=== PATIENT | female | born 1985 | race Caucasian/White ===

== ENCOUNTER 2017-08-10 07:57 | Observation (INO) | payer OTHER ==
[~2017-08-10] VITALS: Ht 172.7 cm; Wt 60.8 kg
[2017-08-10] MEDS ORDERED: OMEP20TA93 PO (08:24)
[2017-08-10] MEDS ORDERED: POVIDONE IODINE 5% (ANTISEPSIS KIT) 4 APPLICATIONS EACH NARE PRN (08:45)
[2017-08-10] MEDS ORDERED: LACTATED RINGER'S 1000 ML IV PRN (08:45)
[2017-08-10] MEDS ORDERED: METOPROLOL TARTRATE 25 MG TAB PO PRN (08:45)
[2017-08-10] MEDS ORDERED: SODIUM CHLORID 0.9% 500 ML IV PRN (08:45)
[2017-08-10] MEDS ORDERED: ceFAZolin 2 GM PREMIX 50 ML IV SCH (08:45)
[2017-08-10] MEDS ORDERED: CHLORHEXIDINE GLUCONATE 2 % 1 PACK (2 CLOTHS) TOPICAL PRN (08:45)
[2017-08-10 09:27] LABS: AUTOMATED NEUTROPHIL # 5.3 TH/MM3 (1.8-7.7); BASOPHIL # 0.1 TH/MM3 (0-0.2); BASOPHIL % 0.7 % (0.0-2.0); EOSINOPHIL # 0.2 TH/MM3 (0-0.4); HEMATOCRIT 42.9 % (35.0-46.0); HEMOGLOBIN 14.7 GM/DL (11.6-15.3); LYMPHOCYTE # 1.9 TH/MM3 (1.0-4.8); MEAN CELL VOLUME 93.7 FL (80.0-100.0); MEAN CORPUSCULAR HGB CONC 34.2 % (32.0-36.0); MEAN PLATELET VOLUME 9.8 FL (7.0-11.0); MONO % 8.4 % (0.0-8.0); MONOCYTE # 0.7 TH/MM3 (0-0.9); NEUT % 64.9 % (16.0-70.0); PLATELET COUNT 137 TH/MM3 (150-450); RED BLOOD COUNT 4.58 MIL/MM3 (4.00-5.30); RED CELL DISTRIBUTION WIDTH 12.4 % (11.6-17.2); WHITE BLOOD COUNT 8.1 TH/MM3 (4.0-11.0)
[2017-08-10] MEDS ORDERED: LIDOCAINE 1%/EPINEPHrine 1:100,000 SOLN 20 ML VIAL ONE (09:27)
[2017-08-10] MEDS ORDERED: APREPITANT 40 MG CAP ONE (09:37)
[2017-08-10] MEDS ORDERED: MIDAZOLAM HCL 2 MG/2 ML VIAL ONE (09:44)
[2017-08-10] MEDS ORDERED: ACETAMINOPHEN 1000 MG/100 ML 100 ML IV ONE (09:44)
--- NOTE | 2017-08-10 11:38 | PD.OP ---
Operative Report Date of Surgery: Aug 10, 2017 Preoperative Diagnosis: (1) Dysplasia of cervix, high grade KIRT 2 (2) Dysfunctional uterine bleeding Postoperative Diagnosis: (1) Dysfunctional uterine bleeding (2) Dysplasia of cervix, high grade KIRT 2 Procedure: LAVH bilateral salpingectomy Anesthesia: general Surgeon: Ryne Hernandez Template Inspector(s): Ryne Pineda MD Aug 10, 2017 11:38
[2017-08-10] MEDS ORDERED: *MEPERIDINE 25 MG INJ VIAL PERIprocedural Use ONLY ONE (11:43)
[2017-08-10] MEDS ORDERED: oxyCODONE/ACETAMINOPHEN 5 MG/325 MG TAB PO PRN ×4 (11:45→14:30)
[2017-08-10] MEDS ORDERED: diphenhydrAMINE HCL 25 MG CAP PO PRN (11:45)
[2017-08-10] MEDS ORDERED: KETOROLAC TROMETHAMINE 30 MG/ML (IVP) VIAL IVP PRN (11:45)
[2017-08-10] MEDS ORDERED: SODIUM CHLORIDE 0.9% FLUSH 10 ML FLUSH IV FLUSH PRN ×2 (11:45→14:30)
[2017-08-10] MEDS ORDERED: *ONDANSETRON 4 MG VIAL PERIprocedural Use ONLY ONE (11:49)
[2017-08-10] MEDS ORDERED: LIDOCAINE HCL 1% PF 5 ML SYRINGE OTHER ONE (12:00)
[2017-08-10] MEDS ORDERED: ePHEDrine/NS 25 MG/5 ML SYRINGE IV ONE (12:00)
[2017-08-10] MEDS ORDERED: LACTATED RINGER'S 1000 ML INJ 1,000 ML IV ONE (12:00)
[2017-08-10] MEDS ORDERED: SODIUM CHLORIDE 0.9% 20 ML VIAL IV ONE (12:00)
[2017-08-10] MEDS ORDERED: PHENYLEPHRINE HCL 10 MG/ML VIAL IV ONE (12:00)
[2017-08-10] MEDS ORDERED: VECURONIUM BROMIDE 20 MG VIAL IV ONE (12:00)
[2017-08-10] MEDS ORDERED: ceFAZolin INJ 1,000 MG VIAL IV ONE (12:00)
[2017-08-10] MEDS ORDERED: NEOSTIGMINE 5 MG/5 ML SYRINGE IV PUSH ONE (12:00)
[2017-08-10] MEDS ORDERED: PHENYLEPH/NS 1000 MCG/10 ML SYR IV ONE (12:00)
[2017-08-10] MEDS ORDERED: PROPOFOL 200 MG/20 ML AMP IV ONE (12:00)
[2017-08-10] MEDS ORDERED: KETOROLAC TROMETHAMINE 30 MG/ML (IVP) VIAL IV PUSH ONE (12:00)
[2017-08-10] MEDS ORDERED: DEXAMETHASONE SOD PHOS 4 MG/ML VIAL IV ONE (12:00)
[2017-08-10] MEDS ORDERED: ROCURONIUM INJ 50 MG/5 ML SYRINGE IV PUSH ONE (12:00)
[2017-08-10] MEDS ORDERED: ONDANSETRON HCL 4 MG/2 ML VIAL IV ONE (12:00)
[2017-08-10] MEDS ORDERED: GLYCOPYRROLATE 1 MG/5 ML SYRINGE IV PUSH ONE (12:00)
[2017-08-10] MEDS ORDERED: *morphine SULFATE 10 MG/ML PERIprocedure ONLY ONE (12:05)
--- NOTE | 2017-08-10 12:20 | MP ---
cc: MARCIE HERNANDEZ DATE OF SURGERY 08/10/2017 OPERATIVE PROCEDURE Laparoscopic-assisted vaginal hysterectomy, bilateral salpingectomy. PREOPERATIVE DIAGNOSIS Irregular dysfunctional uterine bleeding along with severe dysplasia. POSTOPERATIVE DIAGNOSIS Irregular dysfunctional uterine bleeding along with severe dysplasia. SURGEON Dr. Marcie Hernandez ESTIMATED BLOOD LOSS 200 cc. COMPLICATIONS None. FINDINGS Normal female pelvic anatomy. Normal uterus, ovaries, fallopian tubes. ANESTHESIA General. SPECIMEN Cervix, uterus, fallopian tubes bilateral. PROCEDURE IN DETAIL After informed consent the patient was taken to the operating room where she was placed under general anesthesia, placed in supine position legs in the [facility]. The abdomen, perineum and vagina were prepped and draped in normal sterile fashion. After adequate anesthesia was assured, time-out was taken, speculum placed in the vagina, the cervix grasped with a single-tooth tenaculum. Galeano catheter was placed to gravity and then an acorn uterine manipulator was placed in the cervix. At this point gloves were changed. A 5-mm infraumbilical incision was then made after injection with 0.25% Marcaine with epinephrine. We entered the abdomen under direct visualization. Left and right lower quadrant trocars were placed after injection with lidocaine with epinephrine. We insufflated the abdomen. Upper and lower abdomen were normal. Slight adhesion of the left side of the omentum which was pulled off the ovary. Then we came across the mesosalpinx and removed both fallopian tubes bilaterally, came across the utero-ovarian and round ligament progressing down to level of the uterine arteries. We dissected the bladder off the cervix, dissected the uterine arteries out and cauterized on both sides. There was slight oozing from the back, bleeding on the right side. We got hemostasis with a harmonic scalpel. At this point we went below, re-grabbed the cervix with a single-tooth tenaculum, removed the acorn uterine manipulator, made an incision anteriorly, entered the abdomen without difficulty matching the lower and above incision. The posterior cul-de-sac was entered. There was a slight amount of blood and pooling in the posterior cul-de-sac and this was suctioned out. We then used Colin clamps, clamped the cervical branch of the uterine arteries and the uterosacral, cardinal ligaments and the uterus was amputated. Once the uterus was amputated and good hemostasis had been achieved of all blood vessels, the vaginal cuff was run with running locking stitch posteriorly and then closed in a horizontal fashion with [id number] sutures of 0 Vicryl suture. Good hemostasis was achieved. Gloves were changed again. The abdomen was insufflated. Survey of the pelvis revealed normal anatomy and good hemostasis. All blood clots were evacuated. The patient tolerated the procedure well. All instruments were removed from the abdomen. The 5-mm trocar sites were closed with simple stitch. The patient was taken to the recovery room in stable condition after being awakened. MD JESUS Salas/JAIME /11:27 AM /11:55 AM
[2017-08-10 12:40] VITALS: BP 123/65; PULSE 79; RESP 12; TEMP 98.1
[2017-08-10] MEDS: ONDANSETRON HCL 4 MG/2 ML VIAL IVP PRN ×2 (13:21→19:59)
[2017-08-10] MEDS ORDERED: ONDANSETRON ODT 4 MG TAB PO PRN (14:30)
[2017-08-10] MEDS ORDERED: SODIUM CHLORIDE 0.9% FLUSH 10 ML FLUSH IV FLUSH SCH ×2 (14:30→21:00)
[2017-08-10] MEDS ORDERED: OXYTOCIN 30 UNITS-500ML PREMIX 500 ML IV SCH (14:30)
[2017-08-10] MEDS ORDERED: ACETAMINOPHEN 325 MG TAB PO PRN (14:30)
[2017-08-10] MEDS ORDERED: ZOLPIDEM TARTRATE 5 MG TAB PO PRN (14:30)
[2017-08-10] MEDS ORDERED: IBUPROFEN 800 MG TAB PO PRN (14:30)
[2017-08-10] MEDS ORDERED: DOCUSATE SODIUM 50 MG/SENNA 8.6 MG TAB PO PRN (14:30)
[2017-08-10] MEDS ORDERED: WITCH HAZEL 50%/GLYCERIN 12.5% 40 PAD JAR TOPICAL PRN (14:30)
[2017-08-10] MEDS ORDERED: BENZOCAINE 20% TOPICAL SPRAY 60 ML CAN TOPICAL PRN (14:30)
[2017-08-10] MEDS ORDERED: ALUMINUM/MAGNESIUM/SIMETH 30 ML CUP PO PRN (14:30)
[2017-08-10] MEDS ORDERED: KETOROLAC TROMETHAMINE 30 MG/ML (IVP) VIAL IM ONE (15:45)
[2017-08-10] MEDS ORDERED: DIPHTH/TETANUS/ACEL PERTUSSIS (BOOSTER) 0.5 ML VIAL/PFS IM ONE (16:00)
[2017-08-10] MEDS ORDERED: MEASLES, MUMPS, RUBELLA VACCINE 0.5 ML VIAL SQ ONE (16:00)
[2017-08-10 16:30] VITALS: BP 105/62; PULSE 52; RESP 14; TEMP 98
[2017-08-10] MEDS ORDERED: ACETAMINOPHEN/HYDROcodone 325 MG/5 MG TAB PO PRN (16:45)
[2017-08-10] MEDS ORDERED: IBUPROFEN 600 MG TAB PO PRN (17:15)
[2017-08-10] MEDS: ACETAMINOPHEN/HYDROcodone 325 MG/5 MG TAB PO PRN (19:59)
[2017-08-10 20:00] VITALS: BP 133/80; PULSE 65; RESP 18; TEMP 97.7; O2SAT 98
[2017-08-10] MEDS: IBUPROFEN 600 MG TAB PO PRN (21:42)
[2017-08-10 23:38] VITALS: BP 97/58; PULSE 88; RESP 18; TEMP 98; O2SAT 97
[2017-08-11] MEDS: ACETAMINOPHEN/HYDROcodone 325 MG/5 MG TAB PO PRN ×3 (00:29→10:03)
[2017-08-11] MEDS: IBUPROFEN 600 MG TAB PO PRN ×2 (03:41→10:02)
[2017-08-11 04:00] VITALS: BP 111/60; PULSE 78; RESP 16; TEMP 98; O2SAT 97
[2017-08-11 05:55] LABS: AUTOMATED NEUTROPHIL # 8.2 TH/MM3 (1.8-7.7); BASOPHIL % 0.1 % (0.0-2.0); EOSINOPHIL % 0.3 % (0.0-4.0); HEMATOCRIT 36.1 % (35.0-46.0); HEMOGLOBIN 12.5 GM/DL (11.6-15.3); LYMPH % 17.1 % (9.0-44.0); LYMPHOCYTE # 1.9 TH/MM3 (1.0-4.8); MEAN CELL VOLUME 94.5 FL (80.0-100.0); MEAN CORPUSCULAR HEMOGLOBIN 32.6 PG (27.0-34.0); MEAN CORPUSCULAR HGB CONC 34.6 % (32.0-36.0); MEAN PLATELET VOLUME 9.7 FL (7.0-11.0); MONO % 8.9 % (0.0-8.0); NEUT % 73.6 % (16.0-70.0); PLATELET COUNT 175 TH/MM3 (150-450); RED BLOOD COUNT 3.82 MIL/MM3 (4.00-5.30); RED CELL DISTRIBUTION WIDTH 12.5 % (11.6-17.2); WHITE BLOOD COUNT 11.2 TH/MM3 (4.0-11.0)
--- NOTE | 2017-08-11 07:55 | HHI.OB ---
Subjective Post Operative Day: 1 Remarks doing well still having having some pain Objective Vitals/I&O Vital Signs Date Time Temp Pulse Resp B/P (MAP) Pulse Ox O2 Delivery O2 Flow Rate FiO2 08/11/17 04:00 98.0 78 16 111/60 (77) 97 08/10/17 23:38 98.0 88 18 97/58 (71) 97 08/10/17 20:00 97.7 65 18 133/80 (97) 98 08/10/17 16:30 98.0 52 14 105/62 (76) 08/10/17 12:40 98.1 79 12 123/65 (84) 08/10/17 12:30 98.5 70 16 126/69 (88) 96 Room Air 08/10/17 12:15 77 16 124/67 (86) 96 Room Air 08/10/17 12:00 73 16 123/67 (85) 99 Room Air 08/10/17 11:45 73 16 125/68 (87) 99 Nasal Cannula 2 08/10/17 11:37 98.0 83 16 125/64 (84) 100 Nasal Cannula 2 08/10/17 08:27 98.4 62 18 117/49 (71) 100 Intake & Output 08/11/17 08/11/17 07:00 19:00 Output Total 250 ml Balance -250 ml Output Urine Total 250 ml Result Diagram: 08/11/17 0513 Objective Remarks GENERAL: Well-nourished, well-developed patient. ABDOMEN/GI: Abdomen soft, non-tender, bowel sounds present. Incision: Clean, dry and intact. Fundus: Firm, non-tender at umbilicus. GENITOURINARY: Light to moderate bleeding. EXTREMITIES: No cyanosis or edema, non-tender, without signs of DVT. Medications and IVs Current Medications Medications (Trade) Dose Ordered Sig/Ivone Route Start Time Stop Time Status Last Admin Lactated Ringer's 1,000 ml @ 30 mls/hr Q24H PRN IV 08/10/17 08:45 08/13/17 08:44 08/10/17 08:30 Sodium Chloride 500 ml @ 30 mls/hr [id number] PRN IV 08/10/17 08:45 08/13/17 08:44 (Lopressor) 25 mg METAPHYSICIST PRN PO 08/10/17 08:45 08/13/17 08:44 (Betadine 5% Antisepsis Kit) 1 applic METAPHYSICIST PRN EACH NARE 08/10/17 08:45 08/13/17 08:44 08/10/17 08:30 (Chlorhexidine 2% Cloth) 3 pack METAPHYSICIST PRN TOPICAL 08/10/17 08:45 08/13/17 08:44 08/10/17 08:15 (NS Flush) 2 ml UNSCH PRN IV FLUSH 08/10/17 11:45 (NS Flush) 2 ml BID IV FLUSH 08/10/17 21:00 (Motrin) 600 mg Q6H PRN PO 08/10/17 16:45 08/11/17 03:41 (Benadryl) 25 mg Q6H PRN PO 08/10/17 11:45 (Zofran Inj) 4 mg Q6H PRN IVP 08/10/17 11:45 08/10/17 19:59 ([place] 5-325 Mg) 1 tab Q4H PRN PO 08/10/17 16:45 ([place] 5-325 Mg) 2 tab Q4H PRN PO 08/10/17 16:45 08/11/17 05:53 (Motrin) 600 mg Q6H PRN PO 08/10/17 17:15 Assessment/Plan Problem List: (1) Dysfunctional uterine bleeding ICD Codes: N93.8 - Other specified abnormal uterine and vaginal bleeding (2) Dysplasia of cervix, high grade KIRT 2 ICD Codes: N87.1 - Moderate cervical dysplasia [facility] Plan [facility] Aug 11, 2017 07:55
[2017-08-11] MEDS ORDERED: HYDR-3516 PO (07:57)
--- NOTE | 2017-08-11 07:57 | HHI.DCPOC ---
Discharge Care Plan Report Symptoms to Your Doctor -Temperature above 100.5 degrees -Redness, of incision or excessive or foul smelling drainage -Unusual pain or calf pain -Increased vaginal bleeding -Painful or difficulty urinating -Feelings of extreme sadness or anxiety after 2 weeks Goals to Promote Your Health * To prevent worsening of your condition and complications * To maintain your health at the optimal level Directions to Meet Your Goals Take your medications as prescribed Follow your dietary instruction Follow activity as directed Ensure plenty of rest for recovery Drink fluids for hydration Keep your appointments as scheduled Take your immunizations and boosters as scheduled If your symptoms worsen call your PCP, if no PCP go to Urgent Care Center or Emergency Room Smoking is Dangerous to Your Health. Avoid second hand smoke Call the 24-hour crisis hotline for domestic abuse at Ryne Hernandez MD Aug 11, 2017 07:57
--- NOTE | 2017-08-11 08:01 | HHI.DS ---
Admission Date Aug 10, 2017 at 11:36 Discharge Date: Aug 11, 2017 Admitting Diagnosis Diagnosis: (1) Dysfunctional uterine bleeding Diagnosis: Principal ICD Codes: N93.8 - Other specified abnormal uterine and vaginal bleeding (2) Dysplasia of cervix, high grade KIRT 2 Diagnosis: Principal ICD Codes: N87.1 - Moderate cervical dysplasia Brief History patient had HYST doing well Hospital Course patient post op has some pain but otherwise tolerating diet and ambulating Pt Condition on Discharge: Good Discharge Disposition: Discharge Home Discharge Instructions Diet Instructions: As Tolerated, No Restrictions Activities You Can Perform: Pelvic Rest Activities to Avoid: Driving for 24 hrs Follow up Referrals: [facility] - 2 Weeks @ [facility] with Ryne Hernandez MD New Medications: Hydrocodone/Acetaminophen (Hydrocodone-Acetamin 5-325 mg) 5 Mg-325 Mg Tablet 1 TAB PO Q4H PRN for PAIN SCALE 3 TO 6, #30 TAB 0 Refills Continued Medications: Omeprazole (Omeprazole) 20 Mg Tab 20 MG PO DAILY, #30 TAB 0 Refills Ryne Hernandez MD Aug 11, 2017 08:01
[2017-08-11 08:15] VITALS: BP 110/58; PULSE 60; RESP 12; TEMP 97.7
[2017-08-11] MEDS: ONDANSETRON HCL 4 MG/2 ML VIAL IVP PRN (10:03)
== END 2017-08-11 11:26 | disposition home or self-care (01) ==
LOC: HSDC 07:57 → HSDI 11:36 → H1EA 12:47
PROVIDERS: ADMIT Obstetrics & Gynecology; ATTEND Obstetrics & Gynecology
DX: N87.1 Moderate cervical dysplasia (principal); N93.8 Other specified abnormal uterine and vaginal bleeding; N72 Inflammatory disease of cervix uteri; N83.8 Other noninflammatory disorders of ovary, fallopian tube and broad ligament; K21.9 Gastro-esophageal reflux disease without esophagitis
CPT/HCPCS: 00840; 58552; 84702; 85025; 86850; 86900; 86901; 88309; 96372; 96374; 96376; G0378; J0131; J0690; J1100; J1885; J2175; J2250; J2270; J2370; J2405; J2710; J3010; J7120; J8501; 88307